=== PATIENT | male | born 1995 | race Caucasian/White ===

== ENCOUNTER 2022-01-04 22:05 | Emergency (ER) | payer SELFPAY | END 2022-01-04 23:50 | disposition home or self-care (01) | LOC: ER1 22:05 | DX: S61.412A Laceration without foreign body of left hand, initial encounter (principal); Z88.2 Allergy status to sulfonamides; W26.8XXA Contact with other sharp object(s), not elsewhere classified, initial encounter; Z23 Encounter for immunization | CPT/HCPCS: 12002; 73130; 90471; 90715; 99283 ==